=== PATIENT | female | born 1980 | race Caucasian/White ===

== ENCOUNTER → 2016-06-05 | Outpatient (CLI) | payer BC ==
[~2016-06-05] MED LIST: PRENTAB26 PO
--- NOTE | 2016-06-05 14:55 | MAMMOGRAPHY REPORT ---
BILATERAL DIGITAL DIAGNOSTIC MAMMOGRAM TOMOSYNTHESIS WITH CAD AND TARGETED RIGHT ULTRASOUND: 7 CLINICAL HISTORY: 36-year-old female who noticed a lump in the 11:00 to 12:00 posterior left breast after pumping. She recently weaned one month ago but the lump persists. No skin erythema or nipple discharge. Family history of breast cancer = mother and paternal aunt. TECHNIQUE: Bilateral breast tomosynthesis in addition to standard 2D mammography was performed. Curr ent study was also evaluated with a Computer Aided Detection (CAD) system. COMPARISON: No prior exams were available for comparison. BREAST COMPOSITION: There are scattered areas of fibroglandular density in both breasts. FINDINGS: A triangle skin palpable marker overlies the 12:00 posterior right breast, denoting the brenna mp pointed out by the patient. There is a 12 mm asymmetry in the lateral posterior right breast, on ly seen on the CC view. This partially effaces on the tomosynthesis images, suggesting it could rep resent normal overlapping fibroglandular tissue. However, further evaluation with ultrasound was pe rformed. No other suspicious mass, architectural distortion or cluster of suspicious microcalcifica tions is seen. Real-time high-resolution sonographic evaluation was performed throughout the lateral right breast f or the mammographic asymmetry, and also with particular attention to the 11:00 axis approximately 9 cm from the nipple, in the area of palpable lump pointed out by the patient. There is a rounded hyp oechoic to nearly anechoic probable cyst in the 12:00 right breast, 3 cm from the nipple, measuring 2.7 x 2.6 x 2.7 mm. No other discrete solid or cystic mass is seen throughout the lateral right latasha ast. IMPRESSION: ACR-BI-RADS CATEGORY 3: PROBABLY BENIGN, TARGETED ULTRASOUND ACR-BI-RADS CATEGORY 3: AK OBABLY BENIGN No suspicious mammographic or sonographic abnormality in the area of palpable lump in the 11:00 righ t breast, which was pointed out by the patient. Therefore, clinical follow-up is recommended, as bi opsy of a clinically suspicious mass should not be precluded by negative imaging. 2. There is an asymmetry in the lateral right breast, that partially effaces on the tomosynthesis i mages, but no suspicious sonographic correlate was identified. Although this most likely represents normal overlapping fibroglandular tissue, a short interval follow-up right mammogram including kang synthesis images and possible repeat ultrasound is recommended to ensure stability in 6 months. 3. Incidental note is made of a hypoechoic cystic-appearing 2.7 mm mass in the 12:00 right breast, 3 cm from the nipple. Given the hypoechoic as opposed anechoic nature, a repeat targeted ultrasound in the 12:00 right breast should also be performed at the time of follow-up. These results and recommendations were discussed with the patient at the time of the exam. Approximately 10% of breast cancers are not detected with mammography. A negative mammographic repor t should not delay biopsy if a clinically suggestive mass is present. Anay Mckay M.D. ay/:06/05/2016 14:45:36 Casing Crew: Guzman SPANGLER(Jossie)(Karyna), [facility] letter sent: Follow Up Recommended 3 BI-RADS Code: ACR-BI-RADS Category 3: Probably Benign Ultrasound BI-RADS: ACR-BI-RADS Category 3: P robably Benign
== END | disposition home or self-care (01) ==
LOC: C.MAMM 13:55
PROVIDERS: ATTEND Obstetrics & Gynecology
DX: N64.9 Disorder of breast, unspecified (principal)

== ENCOUNTER → 2016-12-04 | Outpatient (CLI) | payer BC ==
--- NOTE | 2016-12-04 16:06 | MAMMOGRAPHY REPORT ---
UNILATERAL RIGHT DIGITAL DIAGNOSTIC MAMMOGRAM TOMOSYNTHESIS WITH CAD AND TARGETED RIGHT ULTRASOUND: CLINICAL HISTORY: 36-year-old woman presents for follow-up in the right breast for an asymmetry seen in the lateral posterior breast on the CC view and also a benign appearing cystic versus solid mass i n the 12:00 right breast seen on ultrasound. She currently reports no palpable lump. Family history of breast cancer = mother, aunt and sister with ovarian cancer. TECHNIQUE: Right breast tomosynthesis in addition to standard 2D mammography was performed. Current fransico fiore was also evaluated with a Computer Aided Detection (CAD) system. COMPARISON: Comparison is made to exams dated: 06/05/2016 ultrasound and 06/05/2016 mammogram - [facility]. BREAST COMPOSITION: There are scattered areas of fibroglandular density in the right breast. FINDINGS: There is decreased density of the right breast compared to the 06/05/2016 mammograms, likel y secondary to decreasing lactational change. There is a well-circumscribed 3.8 x 3.0 mm mass in the middle one third of the right breast on the CC tomosynthesis images (slice 47). No other suspicious mass, architectural distortion or cluster of microcalcifications is seen. An asymmetry is no longer present in the lateral posterior right breast, confirming benignity. Targeted ultrasound was performed in the 12:00 right breast to reevaluate the previously described sm all benign-appearing solid versus cystic mass. In the 12:00 axis, 3 cm from the nipple, there is a r ounded circumscribed hypoechoic solid versus cystic mass measuring 2.4 x 2.6 x 2.4 mm. This has not significantly changed and may be minimally smaller compared to the prior ultrasound at which time it measured 2.7 x 2.6 x 2.7 mm. Nevertheless, another short interval follow-up targeted ultrasound is r ecommended in 6 months. This may possibly correlate with the well-circumscribed 3 mm mammographic ma ss seen on the CC tomosynthesis images. IMPRESSION: ACR-BI-RADS CATEGORY 3: PROBABLY BENIGN, TARGETED ULTRASOUND ACR-BI-RADS CATEGORY 3: PRO BABLY BENIGN 1. An asymmetry is no longer identified in the lateral posterior right breast, confirming benignity. This most likely represented lactational change. 2. There is a small benign-appearing round hypoechoic solid versus cystic mass in the 12:00 right br east on ultrasound that has not significantly changed or is minimally smaller compared to the prior u ltrasound. Another six-month follow-up targeted ultrasound is recommended to ensure longer stability . This is thought to correlate with a well-circumscribed 3 mm mammographic mass. 3. Bilateral diagnostic mammography including tomosynthesis images is also due in 6 months, given th e strong family history of breast cancer. Approximately 10% of breast cancers are not detected with mammography. A negative mammographic report should not delay biopsy if a clinically suggestive mass is present. Anay Mckay M.D. ay/:12/04/2016 14:37:22 Tool Engineer: Sarah SPANGLER(Jossie)(Karyna), [facility] letter sent: Follow Up Recommended 3 BI-RADS Code: ACR-BI-RADS Category 3: Probably Benign Ultrasound BI-RADS: ACR-BI-RADS Category 3: Pr obably Benign
== END | disposition home or self-care (01) ==
LOC: C.MAMM 13:39
PROVIDERS: ATTEND Obstetrics & Gynecology
DX: Z09 Encounter for follow-up examination after completed treatment for conditions other than malignant neoplasm (principal); Z80.3 Family history of malignant neoplasm of breast

== ENCOUNTER → 2017-06-04 | Outpatient (CLI) | payer BC | END | disposition home or self-care (01) | LOC: C.PAPS 16:35 | PROVIDERS: ATTEND Obstetrics & Gynecology | DX: Z01.419 Encounter for gynecological examination (general) (routine) without abnormal findings (principal) ==

== ENCOUNTER → 2017-06-04 | Outpatient (CLI) | payer BC | END | disposition home or self-care (01) | LOC: C.LAB1850 13:35 | PROVIDERS: ATTEND Obstetrics & Gynecology | DX: N92.6 Irregular menstruation, unspecified (principal) ==

== ENCOUNTER → 2017-06-08 | Outpatient (CLI) | payer BC ==
--- NOTE | 2017-06-08 15:09 | MAMMOGRAPHY REPORT ---
BILATERAL DIGITAL DIAGNOSTIC MAMMOGRAM TOMOSYNTHESIS WITH CAD AND TARGETED RIGHT ULTRASOUND: 8 CLINICAL HISTORY: Short interval follow-up of right breast mass. Strong family history of breast can cer including her mother was diagnosed in her 60s. The patient reports no palpable lumps or other co mplaints. TECHNIQUE: Breast tomosynthesis in addition to standard 2D mammography was performed. Current study was also evaluated with a Computer Aided Detection (CAD) system. Bilateral CC and MLO 2-D and tomosy nthesis images were obtained. COMPARISON: Comparison is made to exams dated: 12/04/2016 ultrasound, 12/04/2016 mammogram, 06/05/2016 m ammogram, and 06/05/2016 ultrasound - [facility]. BREAST COMPOSITION: There are scattered areas of fibroglandular density in both breasts. FINDINGS: There are no suspicious masses, calcifications, or areas of architectural distortion noted in either breast. The previously seen circumscribed mass in the right retroareolar breast breast mid dle depth on the cc view is no longer seen. Targeted ultrasound was performed of the right 12:00 breast in the region of the previously seen mamm ographic mass. The previously seen round hypoechoic circumscribed mass is no longer evident on the c urrent exam, and is therefore benign and likely represents a resolved cyst. No suspicious solid mass es are seen in this region. IMPRESSION: ACR BI-RADS CATEGORY 2: BENIGN, TARGETED ULTRASOUND ACR BI-RADS CATEGORY 2: BENIGN The previously seen benign-appearing 3 mm mass in the right 12 o'clock breast is no longer evident, a nd is therefore benign and likely represents a resolved cyst. There is no mammographic or targeted s onographic evidence of malignancy. Given the strong family history of breast cancer, recommend routi ne bilateral screening mammograms in one year. The patient has been verbally notified of the results. Approximately 10% of breast cancers are not detected with mammography. A negative mammographic report should not delay biopsy if a clinically suggestive mass is present. Sarah Beth Gates M.D. /:06/08/2017 14:30:20 Cocoa Butter Filter Operator: Yanira Wang, [facility] letter sent: Normal 1/2 BI-RADS Code: ACR BI-RADS Category 2: Benign Ultrasound BI-RADS: ACR BI-RADS Category 2: Benign
== END | disposition home or self-care (01) ==
LOC: C.MAMM 13:45
PROVIDERS: ATTEND Obstetrics & Gynecology
DX: N63.11 Unspecified lump in the right breast, upper outer quadrant (principal); Z80.3 Family history of malignant neoplasm of breast

== ENCOUNTER → 2017-11-15 | Outpatient (CLI) | payer BC ==
[2017-11-15 15:34] LABS: HEMATOCRIT 42.5 % (37-47); HEMOGLOBIN 14.2 g/dL (12.0-16.0); MEAN CELL VOLUME 83.7 fL (80-100); MEAN CORPUSCULAR HGB CONC 33.4 g/dl (32-36); MEAN PLATELET VOLUME 9.3 fL (7.4-10.4); PLATELET COUNT 285 K/uL (130-400); RED CELL DISTRIBUTION WIDTH CV 13.2 % (11.5-14.5); RED CELL DISTRIBUTION WIDTH SD 39.9 fL (36.4-46.3); WHITE BLOOD COUNT 7.07 K/uL (4.8-10.8)
[2017-11-15 16:47] LABS: HEP C IGG 13 YRS+OLDER_RFLX NEG (NEG)
== END | disposition home or self-care (01) ==
LOC: C.LAB1850 14:15
PROVIDERS: ATTEND Specialist
DX: Z01.83 Encounter for blood typing (principal); Z11.59 Encounter for screening for other viral diseases; Z13.0 Encounter for screening for diseases of the blood and blood-forming organs and certain disorders involving the immune mechanism; Z11.3 Encounter for screening for infections with a predominantly sexual mode of transmission; Z11.4 Encounter for screening for human immunodeficiency virus [HIV]

== ENCOUNTER → 2018-01-17 | Outpatient (CLI) | payer BC | END | disposition home or self-care (01) | LOC: C.LAB1850 08:49 | PROVIDERS: ATTEND Specialist | DX: Z31.83 Encounter for assisted reproductive fertility procedure cycle (principal); Z32.01 Encounter for pregnancy test, result positive; O09.811 Supervision of pregnancy resulting from assisted reproductive technology, first trimester ==

== ENCOUNTER → 2018-01-18 | Outpatient (CLI) | payer BC | END | disposition home or self-care (01) | LOC: C.LAB1850 13:18 | PROVIDERS: ATTEND Specialist | DX: Z11.59 Encounter for screening for other viral diseases (principal) ==

== ENCOUNTER 2018-10-25 03:32 | Inpatient (IN) ==
[2018-10-25] MEDS: LACTATED RINGER'S 1,000 ML IV PRN ×3 (04:00→07:03)
[2018-10-25] MEDS ORDERED: BUPIVACAINE 0.25% 30 ML VIAL ONE (04:15)
[2018-10-25] MEDS ORDERED: ePHEDrine sulfate 50 MG/ML AMP ONE (04:15)
[2018-10-25] MEDS ORDERED: fentaNYL citrate 100 MCG/2 ML VIAL ONE (04:16)
[2018-10-25] MEDS ORDERED: fentaNYL 2MCG/ML ROPIV 1.25MG/ML 100 ML BAG EPI ONE (04:16)
[2018-10-25 04:25] LABS: Hematocrit (blood only) 40.4 % (37-47); Mean Corpuscular Volume 87.4 fL (80-100); Mean Platelet Volume 10.5 fL (7.4-10.4); Platelet Count 195 K/uL (130-400); RDW Standard Deviation 44.3 fL (36.4-46.3); Red Blood Count 4.62 M/uL (4.2-5.4); White Blood Count 12.33 K/uL (4.8-10.8)
[2018-10-25 04:38] LABS: Mean Corpuscular Hgb Conc 34.7 g/dL (32-36)
--- NOTE | 2018-10-25 04:38 | Anesthesiology Consultation ---
Date of Service October 25, 2018 Assessment & Plan Chart Review Chart Review: Acceptable Risk for Labor Epidural History Height/Weight Height: 5 ft 7 in Weight: 122.016 kg Allergies Allergy/AdvReac Type Severity Reaction Status Date / Time Sulfa (Sulfonamide Allergy Mild hives Verified 03/24/14 02:16 Antibiotics) Medications Home Medications Medication Instructions Recorded Confirmed Last Taken PNV cmb#95-ferrous fumarate-FA 1 tab PO DAILY 10/25/18 10/25/18 10/24/18 08:00 [] Active Medications Generic Name Dose Route Start Last Admin Trade Name Freq PRN Reason Stop Dose Admin Lactated Ringer's 1,000 mls @ 125 mls/hr 10/25/18 03:50 10/25/18 04:00 Lr IV 10/27/18 03:49 999 mls/hr .Q8H PRN Administration L&D Protocol Protocol Past Medical History Medical History Anemia Past Surgical History Surgical History History of hysteroscopy Hx of section Social History Smoking Status: Never smoker Hx Alcohol Use: No Hx Substance Use: No Physical Exam Vital Signs Last Vital Signs Temp 37.2 C 10/25/18 03:53 Pulse 83 10/25/18 04:30 Resp 20 10/25/18 03:53 BP 170/76 H 10/25/18 03:52 Pulse Ox 100 10/25/18 04:30 Testing Laboratory Results 10/25/18 04:14
[2018-10-25] MEDS ORDERED: DiphenhydrAMINE HCL 50 MG/ML VIAL IV PRN (05:06)
[2018-10-25] MEDS ORDERED: fentaNYL 2MCG/ML ROPIV 1.25MG/ML 100 ML BAG EPI PRN (05:06)
[2018-10-25] MEDS ORDERED: ePHEDrine sulfate 50 MG/ML AMP IV PRN (05:06)
[2018-10-25] MEDS ORDERED: NALOXONE HCL 1 MG in SODIUM CHLORIDE 0.9% 1000ML 1,000 ML IV PRN (05:06)
[2018-10-25] MEDS ORDERED: NALOXONE HCL 0.4 MG/1 ML VIAL/CARP IV PRN (05:06)
[2018-10-25] MEDS: OXYTOCIN 30 UNITS/500 ML BAG IV PRN ×2 (06:33→07:26)
--- NOTE | 2018-10-25 06:51 | Procedure Note ---
Vaginal Delivery Summary Date of Service October 25, 2018 Patient arrived with an attempted trial of labor after section initially arrived at 4 cm and rapidly progressed to 6 cm at that time she had some increased bleeding membranes were ruptured for clearish bloody fluid and a scalp clip was applied she rapidly progressed to fully dilated with a category 2 tracing with variables at the time of each contraction she pushed for only a few contractions and delivered a baby mouth in the nares suctioned no nuchal cord gentle traction no excessive force used baby was vigorous cord clamped and cut cord gases obtained cord blood obtained placenta removed with gentle traction uterine scar examined internally and found to be intact from prior section second-degree tear repaired with 3-0 Vicryl rectal exam negative for defect sponge and instrument counts correct estimated blood loss 350 mL
[2018-10-25] MEDS ORDERED: SUPERCREAM 0.870% 15 GM JAR EXT PRN (07:03)
[2018-10-25] MEDS ORDERED: OXYTOCIN 30 UNITS/500 ML BAG IV PRN (07:03)
[2018-10-25] MEDS ORDERED: ACETAMINOPHEN 325 MG TAB PO PRN (07:03)
[2018-10-25] MEDS ORDERED: BENZOCAINE 20% AER SPR 82.5 GM CAN EXT PRN (07:03)
[2018-10-25] MEDS ORDERED: DIPHTHERIA/TETANUS/PERTUSSIS 0.5 ML SYR/VIAL IM ONE (07:03)
[2018-10-25] MEDS ORDERED: HYDROCORTISONE ACETATE 25 MG SUPP PR PRN (07:03)
--- NOTE | 2018-10-25 07:20 | Procedure Note ---
Vaginal Delivery Summary Date of Service October 25, 2018 Patient had 150 mL blood loss after delivery after the initial delivery this responded to increased rate of Pitocin and by manual uterine massage
[2018-10-25 07:33] LABS: Cord Venous Blood HCO3 20 mmol/L (18.4-26.8); Cord Venous Blood PCO2 35 mmHg (30.4-57.2); Cord Venous Blood PO2 31 mmHg (14.1-43.3); Cord Venous Blood pH 7.36 (7.20-7.44)
--- NOTE | 2018-10-25 10:09 | Anesthesia Procedure Note ---
Date of Service October 25, 2018 Anesthesia Post Epidural Note Vital Signs Vital Signs: Temp Pulse Resp BP Pulse Ox 10/25/18 09:17 112 H 110/67 10/25/18 09:03 93 H 122/67 10/25/18 08:48 99 H 128/82 10/25/18 08:32 92 H 129/77 10/25/18 08:18 90 124/76 10/25/18 08:03 97 H 114/80 10/25/18 07:51 103 H 115/71 10/25/18 07:39 97 H 117/57 L 10/25/18 07:14 101 H 124/75 10/25/18 07:05 114 H 97/54 L 10/25/18 07:01 80 120/65 10/25/18 06:58 118 H 76/33 L 10/25/18 06:55 87 97/55 L 10/25/18 06:45 92 H 99 10/25/18 06:40 88 100 10/25/18 06:35 109 H 100 10/25/18 06:34 90 124/70 10/25/18 06:30 114 H 100 10/25/18 06:28 94 H 86 L 10/25/18 06:25 107 H 100 10/25/18 06:20 87 121/68 100 10/25/18 06:15 92 H 100 10/25/18 06:10 94 H 100 10/25/18 06:06 83 134/69 10/25/18 06:05 82 100 10/25/18 06:00 91 H 100 10/25/18 05:55 83 98 10/25/18 05:50 86 131/83 98 10/25/18 05:45 90 98 10/25/18 05:40 89 98 10/25/18 05:35 88 128/68 99 10/25/18 05:32 37.2 C 10/25/18 05:30 87 98 10/25/18 05:25 83 99 10/25/18 05:21 88 131/79 10/25/18 05:20 37.2 C 89 18 97 10/25/18 05:16 87 133/67 10/25/18 05:15 78 18 100 10/25/18 05:14 76 127/69 10/25/18 05:13 71 130/67 10/25/18 05:11 82 137/75 10/25/18 05:10 80 18 100 10/25/18 05:08 77 139/65 10/25/18 05:06 68 141/64 H 10/25/18 05:05 68 18 138/61 100 10/25/18 05:01 68 154/73 H 10/25/18 05:00 69 100 10/25/18 04:57 70 172/75 H 10/25/18 04:55 72 100 10/25/18 04:53 20 10/25/18 04:50 86 100 10/25/18 04:47 20 10/25/18 04:45 72 100 10/25/18 04:40 83 100 10/25/18 04:35 82 100 10/25/18 04:30 83 100 10/25/18 04:17 20 L 86 L 10/25/18 03:53 37.2 C 20 10/25/18 03:52 78 170/76 H 10/25/18 03:41 146/108 H Pain Intensity Abdomen: Pain Intensity: 0 Notes Mental Status: alert / awake / arousable Nausea / Vomiting: adequately controlled Pain: adequately controlled Airway Patency, RR, SpO2: stable & adequate BP & HR: stable & adequate Hydration State: stable & adequate Neuraxial Anesthesia: was administered and sensory block is resolving Anesthetic Complications: no major complications apparent and Pt Satisfied with anesthetic care Epidural: Removed without complications and With tip intact
[2018-10-25] MEDS: PRENATAL VITAMIN 1 TAB PO SCH (10:28)
[2018-10-25] MEDS: DOCUSATE SODIUM 100 MG CAP PO SCH ×2 (10:28→19:52)
[2018-10-25] MEDS: IBUPROFEN 600 MG TAB PO PRN ×2 (15:34→19:52)
--- NOTE | 2018-10-26 07:15 | Obstetrical Progress Note ---
Date of Service <Regulo Segura MD - Last Filed: 10/26/18 07:14> October 26, 2018 Assessment & Plan <Regulo Segura MD - Last Filed: 10/26/18 07:14> (1) (spontaneous vaginal delivery): 38 year old day 1 s/p at 39 weeks and 5 days * Vital Signs Reviewed and WNL * Blood type AB+ GBS-, Rubella immune * Pain well controlled * Patient will continue to ambulate and work on breast feeding today * Went over all discharge instructions with patient Subjective <Regulo Segura MD - Last Filed: 10/26/18 07:14> Ambulation: ambulating normally Voiding: no voiding problems Passing Gas:: Yes Diet Tolerance:: regular diet Lochia:: Small Feeding Type:: breast feeding Current Pain Level(1-10): 0 Ms Cohen is doing phenomenally. No issues or concerns at this point. She would like to go home later today Constitutional: no fever and no chills Respiratory: no cough and no dyspnea Cardiovascular: no chest pain, no dyspnea and no calf pain Gastrointestinal: no nausea and no vomiting Physical Exam <Regulo Segura MD - Last Filed: 10/26/18 07:14> Vital Signs (Past 24 Hours) Last Vital Signs Temp 36.7 C 10/26/18 04:22 Pulse 80 10/26/18 04:22 Resp 18 10/26/18 04:22 BP 117/72 10/26/18 04:22 Pulse Ox 98 10/25/18 15:30 Constitutional well developed, well nourished, cooperative and comfortable Respiratory normal respiratory effort, lungs clear to auscultation Cardiovascular Rate/Rhythm: regular rate and regular rhythm Heart Sounds: no click, no gallop, no murmur and no cardiac rub Extremities: no calf tenderness Genitourinary OB Exam Abdomen: + fundal height Fundus: + firm and + relation to umbilicus (1 cm below umbilicus) <Maik Arroyo MD - Last Filed: 10/30/18 13:11> Co-Signing Physician Notes Patient seen and evaluated and agree with the above findings and plan Resident Activity Tracking <Regulo Segura MD - Last Filed: 10/26/18 07:14> Resident Involvement: Resident Care Provided Care Provided: OB Delivery
[2018-10-26 07:41] LABS: Hematocrit (blood only) 27.9 % (37-47); Hemoglobin 9.2 g/dL (12.0-16.0)
[2018-10-26] MEDS: IBUPROFEN 600 MG TAB PO PRN (09:12)
[2018-10-26] MEDS: DOCUSATE SODIUM 100 MG CAP PO SCH (09:12)
[2018-10-26] MEDS: PRENATAL VITAMIN 1 TAB PO SCH (09:12)
[2018-10-26] MEDS ORDERED: BISACODYL 5 MG TABEC PO SCH (20:00)
[2018-10-27] MEDS ORDERED: BISACODYL 10 MG SUPP PR PRN (06:00)
== END 2018-10-26 18:07 | disposition home or self-care (01) | DRG 807 ==
LOC: OPB 03:32 → 4S1 03:34 → 4S2 10:26
DX: Z3A.39 39 weeks gestation of pregnancy; Z37.0 Single live birth; Z88.2 Allergy status to sulfonamides; O34.219 Maternal care for unspecified type scar from previous cesarean delivery; O70.1 Second degree perineal laceration during delivery